=== PATIENT | male | born 1965 | race African-American/Black ===

== ENCOUNTER 2019-05-10 00:15 | Emergency (ER) | payer SELFPAY ==
[~2019-05-10] VITALS: Ht 185.4 cm; Wt 115.2 kg
[2019-05-10 00:19] VITALS: BP 157/78; PULSE 74; RESP 18; Ht 185.4 cm; Wt 115.2 kg
== END 2019-05-10 03:42 | disposition left against medical advice (07) ==
LOC: FTE 00:15
DX: Z53.21 Procedure and treatment not carried out due to patient leaving prior to being seen by health care provider (principal)

== ENCOUNTER 2019-05-20 22:18 | Emergency (ER) | payer SELFPAY ==
[~2019-05-20] VITALS: Ht 185.4 cm; Wt 113.0 kg
[2019-05-20 22:26] VITALS: BP 154/73; PULSE 69; RESP 18; Ht 185.4 cm; Wt 113.0 kg
[2019-05-21] MEDS ORDERED: IBUP800T48 PO (03:55)
[2019-05-21] MEDS ORDERED: MOME17SP14 NASAL (03:55)
[2019-05-21] MEDS ORDERED: AMOX500C2 PO (03:56)
== END 2019-05-20 23:42 | disposition left against medical advice (07) ==
LOC: FTE 22:18
DX: Z53.21 Procedure and treatment not carried out due to patient leaving prior to being seen by health care provider (principal)

== ENCOUNTER 2019-05-21 02:55 | Emergency (ER) | payer SELFPAY ==
[~2019-05-21] VITALS: Ht 185.4 cm; Wt 112.3 kg
[~2019-05-21 02:55] MED LIST: AMOX500C2 PO; IBUP800T48 PO; MOME17SP14 NASAL
[2019-05-21 03:01] VITALS: BP 135/80; PULSE 65; RESP 18; Ht 185.4 cm; Wt 112.3 kg
--- NOTE | 2019-05-21 03:50 | ERD ---
ER Documentation Chief Complaint Chief Complaint headache since yesterday HPI This is a 53-year-old male presents emergency department with complaints of frontal headache, nasal congestion for about a day. Denies headache, head injury, loss of consciousness, dizziness, neck pain, neck stiffness, throat pain, difficulty swallowing, difficulty breathing lying flat, shoulder pain, chest pain, back pain, abdominal pain, nausea, vomiting, consti pation, diarrhea, urinary symptoms, loss of bowel and bladder control, trauma, injury, falls, difficulty walking due to pain, numbness or tingling sensation, calf pain, recent travel, recent major surgery in the last 3 weeks, calf pain, recent long travel, recent exposure to any illness, recent antibiotic use in the last 3 months, fever, chills, seizures. Past medical history: Surgical history: Social: Denies smoking, use of alcoholic beverages, use of illegal drugs. ROS All systems reviewed and are negative except as per history of present illness. Medications Home Meds Active Scripts Amoxicillin* (Amoxicillin*) 500 Mg Cap, 500 MG PO TID for 10 Days, CAP Prov:NATALIFRANKLYNHERRERA F 05/21/19 Mometasone Furoate* (Nasonex*) 50 Mcg/[place] - 17 Gm [place].pump, 1 SPRAY NASAL DAILY, #1 BOTTLE TO EACH NOSTRIL Prov:ROBBIESONAHERRERA F 05/21/19 Ibuprofen* (Motrin*) 800 Mg Tab, 800 MG PO Q6H PRN for PAIN AND OR ELEVATED TEMP, #30 TAB Prov:NATALIILABANIVONNEAR F 05/21/19 Allergies Allergies: Coded Allergies: No Known Allergy (Unverified , 05/10/19) PMhx/Soc Medical and Surgical Hx: pt denies Medical Hx History of Surgery: Yes (L LEG SURGERY 1995) Hx Alcohol Use: No Hx Substance Use: No Hx Tobacco Use: No Smoking Status: Never smoker Physical Exam Vitals Vital Signs Date Temp Pulse Resp B/P (MAP) Pulse Ox O2 O2 Flow FiO2 Time Delivery Rate 05/21/19 97.6 65 18 135/80 99 03:01 (98) Physical Exam Head: Atraumatic Eyes: Normal Conjunctiva ENT: Normal External Ears, Nose and Mouth. Bilateral ears: TMs are not erythematous. No bleeding. No discharge. No hearing loss. No mastoid tenderness. Nose: There is frontal or maxillary sinus tenderness palpation. Throat: Uvula is in midline and nondisplaced. Tonsils are +1 bilaterally without redness and without exudates. Tolerating secretions. Patent airway. Speaks full and clear sentences. No tripoding. Neck: Full range of motion. No meningismus. No nuchal rigidity. No signs of meningeal irritation. Resp: Clear to auscultation bilaterally. No accessory muscle use in breathing. Cardio: Regular rate and rhythm, no murmurs Abd: Soft, non tender, non distended. Normal bowel sounds. Negative Donis sign. Skin: No petechiae or rashes. Color appears normal for ethnicity. No skin tenting. No signs of severe dehydration. Back: No midline or flank tenderness Ext: No cyanosis, or edema Neur: Awake and alert. No facial droop. Follows commands. Equal bending press operator. Equal strength in bilateral upper and lower extremities. Romberg test is negative. No neurological deficits. Psych: Normal Mood and Affect Results 24 hrs Current Medications Medications Dose Sig/Coco Start Time Status Last (Trade) Ordered Route PRN Stop Time Admin Dose Reason Admin Ibuprofen 800 mg ONCE ONCE 05/21/19 DC 05/21/19 (Motrin) PO 04:00 03:55 05/21/19 04:01 Procedures/MDM Diagnostic tests: Clinical exam. Treatment: Motrin. Re-evaluation: Denies headache, neck pain. Denies chest pain. No facial droop. Equal bending press operator. Romberg test negative. No neurological deficits. Stated that he feels much better at this time and that he is ready to go home. Stated that he is comfortable to go home. Differential diagnosis I have low suspicion for sepsis, meningitis, mastoiditis, peritonsillar abscess, stroke. Final diagnosis: Sinusitis. Prescription: Amoxicillin. Motrin. Nasonex. Follow-up with PCP in the next 24-48 hours. Come back here in the emergency department for any new symptoms or any worsening symptoms. All questions and concerns were answered. Patient and family members verbalized understanding and agreed with plan of care. Hemodynamically stable on discharge. Departure Diagnosis: Primary Impression: Sinusitis Condition: Stable Additional Instructions: Follow-up with PCP in the next 24-48 hours. Come back here in the emergency department for any new symptoms or any worsening symptoms. HERRERA KENNEY May 21, 2019 03:50
[2019-05-21] MEDS ORDERED: IBUPROFEN 800 MG TAB PO ONE (04:00)
== END 2019-05-21 04:14 | disposition home or self-care (01) ==
LOC: FTE 02:55
DX: J32.9 Chronic sinusitis, unspecified (principal)
CPT/HCPCS: 99283